=== PATIENT | female | born 1970 | race Caucasian/White ===

== ENCOUNTER 2018-01-24 14:00 | Outpatient (CLI) | payer BC ==
--- NOTE | 2018-01-31 15:46 | MMO ---
BILATERAL SCREENING MAMMOGRAM: COMPARISON: 07/30/2015. INDICATION: Routine annual screening mammography. Examination is interpreted with the assistance of CAD. FINDINGS: There are scattered fibroglandular elements bilaterally. There is no evidence of a new dominant mass , suspicious clustering of microcalcifications, or architectural distortion. IMPRESSION: BI-RADS 1 - negative. Annual screening mammography is recommended. BIRADS 1: Negative Routine annual screening mammography (for women over age 40) POS: [facility]
== END 2018-01-24 14:01 | disposition home or self-care (01) ==
LOC: SCSMAMMO 14:00
PROVIDERS: ATTEND Family Medicine
DX: Z12.31 Encounter for screening mammogram for malignant neoplasm of breast (principal)
CPT/HCPCS: 77067

== ENCOUNTER 2019-12-21 17:30 | Outpatient (CLI) | payer BC | END 2019-12-21 17:31 | disposition home or self-care (01) | LOC: SLEEPLAB 17:30 | PROVIDERS: ATTEND Dentist General Practice | DX: G47.33 Obstructive sleep apnea (adult) (pediatric) (principal); R06.83 Snoring; G47.00 Insomnia, unspecified; G47.63 Sleep related bruxism | CPT/HCPCS: 95806 ==

== ENCOUNTER 2021-02-04 13:56 | Outpatient (CLI) | payer BC | END 2021-02-04 13:57 | disposition home or self-care (01) | LOC: BICMAMMO 13:56 | PROVIDERS: ATTEND Family Medicine | DX: Z12.31 Encounter for screening mammogram for malignant neoplasm of breast (principal); Z80.3 Family history of malignant neoplasm of breast | CPT/HCPCS: 77063; 77067 ==